=== PATIENT | female | born 2005 | race Caucasian/White ===

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

== ENCOUNTER 2024-03-24 15:48 | Emergency (ER) | payer BC, MEDICAID ==
[~2024-03-24] VITALS: Ht 165.1 cm; Wt 60.0 kg
[2024-03-24 15:54] VITALS: O2SAT 99
[2024-03-24 18:22] LABS: CLARITY URINE CLEAR (CLEAR); COLOR URINE YELLOW (YELLOW); GLUCOSE URINE NEGATIVE (NEGATIVE); KETONES URINE NEGATIVE (NEGATIVE); LEUKOCYTE ESTERASE URINE 2+ (NEGATIVE); NITRITE URINE NEGATIVE (NEGATIVE); OCCULT BLOOD URINE 1+ (NEGATIVE); PROTEIN URINE NEGATIVE (NEGATIVE); SPECIFIC GRAVITY URINE 1.007 (1.005-1.030); UROBILINOGEN URINE 0.2 E.U./dL (0.2-1.0)
[2024-03-24] MEDS: ONDANSETRON 4MG ODT PO ONE (18:29)
[2024-03-24] MEDS: ACETAMINOPHEN 325MG TABLET PO PRN (18:29)
[2024-03-24 18:33] LABS: BACTERIA URINE 2+; SQUAMOUS EPITHELIAL CELL URINE 2+ /lpf (RARE/1+); YEAST URINE NONE SEEN
[2024-03-24 19:20] LABS: BASOPHILS % 0.6 % (0.0-2.0); EOSINOPHILS % 0.2 % (0.0-5.0); HEMATOCRIT. 39.5 % (36.0-48.0); HEMOGLOBIN. 13.5 g/dL (12.0-16.0); MEAN CORPUSCULAR HGB CONC 34.1 g/dL (31.0-37.0); MEAN CORPUSCULAR VOLUME 93.7 fL (81.0-99.0); MEAN PLATELET VOLUME 7.4 fl (7.4-10.4); NEUTROPHILS % 75.2 % (40.0-76.0); PLATELET 362 x1000/uL (130-400); RED BLOOD CELL COUNT 4.21 mill/uL (4.2-5.4); RED CELL DISTRIBUTION WIDTH 13.7 % (11.6-14.6)
[2024-03-24 19:29] LABS: CHLORIDE 106 mEq/L (98-107); POTASSIUM 3.6 mEq/L (3.5-5.1); SODIUM 136 mEq/L (136-145)
[2024-03-24 19:30] LABS: CARBON DIOXIDE 23 mEq/L (21-32)
[2024-03-24 19:31] LABS: CALCIUM 9.4 mg/dL (8.7-10.4)
[2024-03-24 19:35] LABS: CREATININE 0.6 mg/dL (0.6-1.0)
[2024-03-24 19:36] LABS: GLUCOSE 92 mg/dL (70-105); UREA NITROGEN BLOOD 5 mg/dL (9-23)
[2024-03-24 19:49] LABS: B-HCG QUANTITATIVE 7736 mIU/mL (<3)
[2024-03-24] MEDS ORDERED: CEPH500C2 MT (21:32)
[2024-03-24] MEDS ORDERED: ONDA4TAB50 PO (21:32)
[2024-03-24] MEDS ORDERED: ACET-2708 PO (21:32)
[2024-03-24 21:50] VITALS: BP 108/61; PULSE 82; RESP 16; TEMP 97.8
== END 2024-03-24 22:00 | disposition home or self-care (01) ==
LOC: ER 15:48
DX: O20.0 Threatened abortion (principal); Z3A.01 Less than 8 weeks gestation of pregnancy
CPT/HCPCS: 99284; 76801; 80048; 81003; 81025; 84702; 85025; 86850; 86900; 86901; 36415; 76817; Q0162

== ENCOUNTER 2024-11-21 11:17 | Emergency (ER) | payer BC, MEDICAID ==
[~2024-11-21] VITALS: Ht 162.6 cm; Wt 69.0 kg
[~2024-11-21 11:17] MED LIST: ACET-2708 PO; CEPH500C2 MT; ONDA4TAB50 PO
[2024-11-21 11:24] VITALS: O2SAT 99
[2024-11-21 11:40] VITALS: BP 105/53; PULSE 88; RESP 17; TEMP 36.5; O2SAT 99
[2024-11-21 12:11] LABS: BASOPHILS % 0.4 % (0.0-2.0); EOSINOPHILS % 0.2 % (0.0-5.0); HEMATOCRIT. 36.4 % (36.0-48.0); HEMOGLOBIN. 11.9 g/dL (12.0-16.0); LYMPHOCYTES % 15.6 % (20.0-50.0); MEAN CORPUSCULAR HEMOGLOBIN 30.4 pg (28.0-32.0); MEAN CORPUSCULAR HGB CONC 32.7 g/dL (31.0-37.0); MEAN CORPUSCULAR VOLUME 93.2 fL (81.0-99.0); MEAN PLATELET VOLUME 7.5 fl (7.4-10.4); MONOCYTES % 6.4 % (2.0-8.0); NEUTROPHILS % 77.4 % (40.0-76.0); PLATELET 321 x1000/uL (130-400); RED BLOOD CELL COUNT 3.91 mill/uL (4.2-5.4); RED CELL DISTRIBUTION WIDTH 13.5 % (11.6-14.6)
[2024-11-21 12:17] LABS: CLARITY URINE CLEAR (CLEAR); COLOR URINE YELLOW (YELLOW); GLUCOSE URINE NEGATIVE (NEGATIVE); KETONES URINE NEGATIVE (NEGATIVE); LEUKOCYTE ESTERASE URINE 2+ (NEGATIVE); NITRITE URINE NEGATIVE (NEGATIVE); OCCULT BLOOD URINE NEGATIVE (NEGATIVE); PROTEIN URINE NEGATIVE (NEGATIVE); SPECIFIC GRAVITY URINE 1.016 (1.005-1.030); UROBILINOGEN URINE 0.2 E.U./dL (0.2-1.0)
[2024-11-21 12:21] LABS: CHLORIDE 104 mEq/L (98-107); POTASSIUM 4.3 mEq/L (3.5-5.1); SODIUM 135 mEq/L (136-145)
[2024-11-21 12:22] LABS: CALCIUM 9.2 mg/dL (8.7-10.4); CARBON DIOXIDE 24 mEq/L (21-32)
[2024-11-21 12:27] LABS: CREATININE 0.5 mg/dL (0.6-1.0); GLUCOSE 87 mg/dL (70-105); HCG SCREEN POSITIVE; UREA NITROGEN BLOOD < 5 mg/dL (9-23)
[2024-11-21 12:34] LABS: RBC URINE 0-2 /hpf (0-2); SQUAMOUS EPITHELIAL CELL URINE 2+ /lpf (RARE/1+)
[2024-11-21 12:35] LABS: MUCUS URINE 1+ /lpf (< = 2+)
[2024-11-21 12:36] LABS: BACTERIA URINE TRACE
[2024-11-21 12:45] LABS: B-HCG QUANTITATIVE 108651 mIU/mL (<6)
== END 2024-11-21 14:59 | disposition home or self-care (01) ==
LOC: ER 11:17
DX: O20.0 Threatened abortion (principal); Z79.899 Other long term (current) drug therapy; Z3A.01 Less than 8 weeks gestation of pregnancy
CPT/HCPCS: 36415; 76801; 80048; 81003; 81025; 84702; 84703; 85025; 86850; 86900; 99284

== ENCOUNTER 2024-12-24 11:10 | Emergency (ER) | payer BC, MEDICAID ==
[~2024-12-24] VITALS: Ht 162.6 cm; Wt 71.0 kg
[2024-12-24 11:14] VITALS: O2SAT 99
[2024-12-24 11:21] VITALS: BP 124/73; PULSE 92; RESP 18; TEMP 36.9; O2SAT 100
[2024-12-24 12:01] LABS: CLARITY URINE CLEAR (CLEAR); COLOR URINE YELLOW (YELLOW); GLUCOSE URINE NEGATIVE (NEGATIVE); KETONES URINE NEGATIVE (NEGATIVE); LEUKOCYTE ESTERASE URINE 3+ (NEGATIVE); NITRITE URINE NEGATIVE (NEGATIVE); OCCULT BLOOD URINE NEGATIVE (NEGATIVE); PH URINE 6.5 (4.5-8.0); PROTEIN URINE NEGATIVE (NEGATIVE); SPECIFIC GRAVITY URINE 1.009 (1.005-1.030); UROBILINOGEN URINE 0.2 E.U./dL (0.2-1.0)
[2024-12-24 12:04] LABS: BASOPHILS % 0.5 % (0.0-2.0); EOSINOPHILS % 0.6 % (0.0-5.0); HEMATOCRIT. 35.8 % (36.0-48.0); HEMOGLOBIN. 12.3 g/dL (12.0-16.0); LYMPHOCYTES % 18.5 % (20.0-50.0); MEAN CORPUSCULAR HEMOGLOBIN 31.2 pg (28.0-32.0); MEAN CORPUSCULAR HGB CONC 34.4 g/dL (31.0-37.0); MEAN CORPUSCULAR VOLUME 90.9 fL (81.0-99.0); MONOCYTES % 5.7 % (2.0-8.0); NEUTROPHILS % 74.7 % (40.0-76.0); PLATELET 272 x1000/uL (130-400); RED BLOOD CELL COUNT 3.93 mill/uL (4.2-5.4); RED CELL DISTRIBUTION WIDTH 13.6 % (11.6-14.6); WHITE BLOOD COUNT 8.1 x1000/uL (4.5-11.0)
[2024-12-24 12:16] LABS: BACTERIA URINE 1+; CARBON DIOXIDE 22 mEq/L (21-32); CHLORIDE 107 mEq/L (98-107); POTASSIUM 3.6 mEq/L (3.5-5.1); RBC URINE 0-2 /hpf (0-2); SODIUM 136 mEq/L (136-145); SQUAMOUS EPITHELIAL CELL URINE 2+ /lpf (RARE/1+); WBC URINE 15-25 /hpf (0-2); YEAST URINE NONE SEEN
[2024-12-24 12:22] LABS: CREATININE 0.6 mg/dL (0.6-1.0); GLUCOSE 86 mg/dL (70-105); UREA NITROGEN BLOOD < 5 mg/dL (9-23)
[2024-12-24 13:29] LABS: B-HCG QUANTITATIVE 30555 mIU/mL (<6)
[2024-12-24] MEDS ORDERED: CEPH500C2 MT (14:14)
[2024-12-24] MEDS: CEFTRIAXONE SODIUM 1G VIAL IM ONE (14:35)
[2024-12-27 04:07] LABS: CHLAMYDIA TRACHOMATIS NAA Positive (Negative); NEISSERIA GONORRHOEAE NAA Negative (Negative)
== END 2024-12-24 14:56 | disposition home or self-care (01) ==
LOC: ER 11:10
DX: O23.41 Unspecified infection of urinary tract in pregnancy, first trimester (principal); Z3A.12 12 weeks gestation of pregnancy
CPT/HCPCS: 99285; 76801; 87491; 87591; 80048; 81003; 81025; 84702; 85025; 87086; 36415; 76817; 96372; J0696

== ENCOUNTER 2025-02-25 10:42 | Emergency (ER) | payer BC, MEDICAID ==
[~2025-02-25] VITALS: Ht 162.6 cm; Wt 68.2 kg
[2025-02-25 11:37] LABS: BASOPHILS % 0.5 % (0.0-2.0); EOSINOPHILS % 0.5 % (0.0-5.0); HEMATOCRIT. 35.0 % (36.0-48.0); HEMOGLOBIN. 11.9 g/dL (12.0-16.0); LYMPHOCYTES % 16.3 % (20.0-50.0); MEAN PLATELET VOLUME 8.1 fl (7.4-10.4); MONOCYTES % 5.1 % (2.0-8.0); NEUTROPHILS % 77.6 % (40.0-76.0); PLATELET 300 x1000/uL (130-400); RED BLOOD CELL COUNT 3.74 mill/uL (4.2-5.4); RED CELL DISTRIBUTION WIDTH 13.7 % (11.6-14.6)
[2025-02-25 12:03] LABS: CREATININE 0.7 mg/dL (0.6-1.0); UREA NITROGEN BLOOD 5 mg/dL (9-23)
[2025-02-25 12:59] VITALS: BP 141/81; PULSE 75; RESP 18; TEMP 36.8; O2SAT 99
[2025-02-25 13:15] LABS: CLARITY URINE CLEAR (CLEAR); COLOR URINE YELLOW (YELLOW); GLUCOSE URINE NEGATIVE (NEGATIVE); KETONES URINE NEGATIVE (NEGATIVE); LEUKOCYTE ESTERASE URINE 2+ (NEGATIVE); NITRITE URINE NEGATIVE (NEGATIVE); OCCULT BLOOD URINE NEGATIVE (NEGATIVE); PH URINE 7.5 (4.5-8.0); PROTEIN URINE NEGATIVE (NEGATIVE); SPECIFIC GRAVITY URINE 1.009 (1.005-1.030); UROBILINOGEN URINE 0.2 E.U./dL (0.2-1.0)
[2025-02-25 13:57] LABS: BACTERIA URINE TRACE; RBC URINE 0-2 /hpf (0-2)
[2025-02-25 14:06] LABS: SQUAMOUS EPITHELIAL CELL URINE FEW /lpf (RARE/1+)
== END 2025-02-25 13:06 | disposition short-term general hospital (02) ==
LOC: ER 10:42
DX: O46.92 Antepartum hemorrhage, unspecified, second trimester (principal); Z79.899 Other long term (current) drug therapy; Z3A.22 22 weeks gestation of pregnancy
CPT/HCPCS: 36415; 76815; 80048; 81003; 85025; 86850; 86900; 99285